=== PATIENT | female | born 1995 ===

== ENCOUNTER → 2016-07-16 | Outpatient (CLI) | payer OTHER ==
[~2016-07-16] MED LIST: NO HOME MEDS
[2016-07-21 15:46] LABS: CHLAMYDIA TRACH RNA*** NOT DETECTED (NOT DETECTED); GC (NEIS GONORRHOEAE)RNA** NOT DETECTED (NOT DETECTED)
== END | disposition home or self-care (01) ==
LOC: C.LABSPEC 15:41
PROVIDERS: ATTEND Obstetrics & Gynecology
DX: Z34.83 Encounter for supervision of other normal pregnancy, third trimester (principal)

== ENCOUNTER → 2016-07-17 | Outpatient (CLI) | payer OTHER | END | disposition home or self-care (01) | LOC: C.PAPS 17:18 | PROVIDERS: ATTEND Obstetrics & Gynecology | DX: Z34.83 Encounter for supervision of other normal pregnancy, third trimester (principal) ==

== ENCOUNTER → 2016-08-23 | Outpatient (CLI) | payer OTHER | END | disposition home or self-care (01) | LOC: C.LABSPEC 17:30 | PROVIDERS: ATTEND Obstetrics & Gynecology | DX: Z34.03 Encounter for supervision of normal first pregnancy, third trimester (principal) ==

== ENCOUNTER 2016-09-12 08:06 | Inpatient (IN) | payer OTHER ==
[2016-09-12] VITALS (9 sets, daily range): BP systolic 102–132; BP diastolic 60–79; PULSE 55–83; TEMP 36.6–37.1; O2SAT 96–100; Ht 147.3 cm; Wt 61.7 kg
[~2016-09-12] VITALS: Ht 147.3 cm; Wt 61.7 kg
--- NOTE | 2016-09-12 08:53 | DIAGNOSTIC IMAGING REPORT ---
Limited ultrasound LIMITED (US) CLINICAL HISTORY: UNKNOWN DUE DATE preamniocentesis TECHNIQUE: Ultrasound COMPARISON STUDY: None FINDINGS: Oligohydramnios. Amniotic fluid index 4 cm. Cephalic presentation. Pliable. heart rate 1 30 bpm IMPRESSION: Oligohydramnios. Cephalic presentation. Electronically signed by: Garrett Castrejon M.D. 09/12/2016 8:52 AM Dictated Date/Time: 09/12/2016 8:51 AM
--- NOTE | 2016-09-12 08:58 | HISTORY & PHYSICAL EXAMINATION ---
DATE OF ADMISSION: 09/12/2016 CHIEF COMPLAINT: Oligohydramnios, term , large cervical lesion. HISTORY OF PRESENT ILLNESS: The patient is a 21-year-old 1, para 0. She does not know her last menstrual period. She is a late arrival for care at about 34 weeks. She had a prior late trimester ultrasound which was undated and she is presently being evaluated for amniocentesis to check for lung maturity. However, the ultrasound showed oligohydramnios, so she is presently being scheduled for a primary low segment section due to large cervical lesion with a negative Pap smear. Cervical lesion is presumed to be a large wart. PAST MEDICAL HISTORY: She has no known drug allergies. PAST SURGICAL HISTORY: She has had no previous surgery. MEDICAL HISTORY: No history of rheumatic fever, heart disease, heart murmur, diabetes, tuberculosis. SOCIAL HISTORY: No smoking. No alcohol intake. FAMILY HISTORY: She is uncertain of any of her family history. REVIEW OF SYSTEMS: HEAD: No symptoms of frequent or severe headaches. EYES: No symptoms of blurred vision or double vision. EARS: No symptoms of frequent ear infections. PHYSICAL EXAMINATION: GENERAL: Well-developed, well-nourished [place] female, alert, oriented x3 and cooperative in no acute distress, appears stated age. EYES: Conjunctivae are pink. Sclerae white, no evidence of jaundice. EARS: Had normal light reflex bilaterally. NOSE: Had normal mucosa. Septum is midline. There were no polyps. THROAT: No erythema or evidence of infection. Teeth are in good state of repair. HEAD: Normocephalic, normal distribution of hair. NECK: Supple. Trachea midline. Thyroid is not enlarged. There is no adenopathy appreciated. Both carotids are of good intensity. CHEST: Clear to auscultation and percussion. No wheezes, rales or rhonchi appreciated. HEART: Regular rhythm. S1 and S2 are normal. BREAST EXAMINATION: Normal. ABDOMEN: Revealed term size fetus, vertex presentation. No abdominal tenderness. No CVA tenderness. PELVIC EXAMINATION: Revealed a large cervical wart covering the entire cervix about 5-6 cm in diameter. Cervix was open 1 cm, vertex presentation. MUSCULOSKELETAL EXAMINATION: Revealed no calf tenderness. IMPRESSIONS OF THIS CASE: Term , oligohydramnios, large cervical wart.
[2016-09-12] MEDS ORDERED: LACTATED RINGER'S 1000ML 1,000 ML IV SCH ×2 (09:32→12:00)
[2016-09-12] MEDS ORDERED: CITRIC ACID/SODIUM CITRATE 15 ML UDC PO ONE (09:45)
[2016-09-12] MEDS ORDERED: CEFOXITIN IV 2,000 MG in DEXTROSE 5% 50ML 50 ML IV SCH (10:00)
[2016-09-12] MEDS ORDERED: OXYTOCIN INJ 10 UNITS/ML VIAL INJ PRN (10:00)
[2016-09-12] MEDS ORDERED: MoRPHine SULFATE PF 1 MG/ML 10 ML AMP/VIAL ONE (10:03)
[2016-09-12] MEDS ORDERED: OXYTOCIN INJ 10 UNITS/ML VIAL ONE (10:03)
[2016-09-12] MEDS ORDERED: FENTANYL CITRATE INJ 50 MCG/1 ML 2 ML VIAL ONE (10:03)
[2016-09-12 10:04] LABS: BASO % 0.1 %; BASO ABS # 0.01 K/uL (0-0.2); COMPLETE YES; EOS % 1.1 %; HEMATOCRIT 33.9 % (37-47); IG% 0.4 %; LYMPH ABS # 1.95 K/uL (1.2-3.4); MEAN CELL VOLUME 84.3 fL (80-100); MEAN CORPUSCULAR HEMOGLOBIN 27.4 pg (25-34); MEAN CORPUSCULAR HGB CONC 32.4 g/dl (32-36); MEAN PLATELET VOLUME 11.8 fL (7.4-10.4); MONO % 7.6 %; NEUT % 63.8 %; PLATELET COUNT 181 K/uL (130-400); RED BLOOD COUNT 4.02 M/uL (4.2-5.4); WHITE BLOOD COUNT 7.21 K/uL (4.8-10.8)
[2016-09-12] MEDS ORDERED: PHENYLEPHRINE 100MCG/ML 5ML SYR ONE (10:55)
[2016-09-12] MEDS ORDERED: OXYTOCIN INJ 10 UNITS/ML VIAL IM ONE (10:57)
[2016-09-12] MEDS ORDERED: DIPHTHERIA/TETANUS/PERTUSSIS 0.5 ML SYR/VIAL IM. ONE (11:30)
[2016-09-12] MEDS ORDERED: MAGNESIUM HYDROXIDE SUSP 30 ML UDC PO PRN (11:30)
[2016-09-12] MEDS ORDERED: SENNA 8.6 MG TAB PO PRN (11:30)
[2016-09-12] MEDS ORDERED: LANOLIN OINT EXT PRN ×2 (11:30)
[2016-09-12] MEDS ORDERED: SUPERCREAM 0.870 % 15GM JAR EXT PRN (11:30)
[2016-09-12] MEDS ORDERED: BENZOCAINE 20% AER SPR 82.5 GM CAN EXT PRN (11:30)
[2016-09-12] MEDS ORDERED: HYDROCORTISONE ACETATE 25 MG SUPP PR PRN (11:30)
[2016-09-12] MEDS ORDERED: NALOXONE HCL INJ 0.08 MG in SYRINGE 1.8 ML IV PRN (11:41)
[2016-09-12] MEDS ORDERED: LACTATED RINGER'S 1000ML 500 ML IV PRN (11:41)
[2016-09-12] MEDS ORDERED: SODIUM CHLORIDE 0.9% 1000ML 1,000 ML IV PRN (11:41)
[2016-09-12] MEDS ORDERED: NALOXONE HCL INJ 1 MG in SODIUM CHLORIDE 0.9% 1000ML 1,000 ML IV PRN (11:41)
[2016-09-12] MEDS ORDERED: NALBUPHINE HCL INJ 10 MG/ML AMP IV PRN (11:45)
[2016-09-12] MEDS ORDERED: EpHEDrine SULFATE INJ 50 MG/ML AMP IV PRN ×2 (11:45)
[2016-09-12] MEDS ORDERED: DiphenhydrAMINE HCL 50 MG/ML VIAL IV PRN (11:45)
[2016-09-12] MEDS ORDERED: FENTANYL CITRATE INJ 50 MCG/1 ML 2 ML VIAL IV PRN (11:45)
[2016-09-12] MEDS ORDERED: NALOXONE HCL 0.4 MG/1 ML VIAL/CARP IV PRN (11:45)
[2016-09-12] MEDS ORDERED: NO NARCOTICS OR SEDATIVES SCH (11:45)
[2016-09-12] MEDS ORDERED: MoRPHine SULFATE PF 1 MG/ML 10 ML AMP/VIAL EPI PRN (11:45)
[2016-09-12] MEDS ORDERED: ONDANSETRON INJ 2 MG/ML 2 ML VIAL IV PRN ×2 (11:45)
[2016-09-12] MEDS ORDERED: MEPERIDINE HCL 25 MG/ML CARP IV PRN (11:45)
[2016-09-12] MEDS ORDERED: ATROPINE SULFATE 0.1 MG/ML 5ML SYR IV PRN (11:45)
--- NOTE | 2016-09-12 11:59 | OPERATIVE REPORT ---
DATE OF OPERATION: 09/12/2016 INDICATIONS FOR SURGERY: Oligohydramnios, large cervical wart. PREOPERATIVE DIAGNOSIS: Oligohydramnios, uncertain due date, large cervical lesion. POSTOPERATIVE DIAGNOSIS: Same. Pathology pending. PROCEDURE: Primary low segment section. SURGEON: Dr. Capone. ROADWAY ENGINEER: Dr. Garcia. ESTIMATED BLOOD LOSS: 600 mL. ANESTHESIA: Spinal. OPERATIVE FINDINGS AND PROCEDURE: The patient was brought to the OR table, correctly identified by armband and conversation. Spinal anesthesia was administered. A catheter was inserted. Suprapubic area was clipped. Compression stockings were applied. The patient was painted with an alcohol based sterilizing solution, draped in usual sterile fashion. Level of anesthesia was tested and found to be adequate. Pfannenstiel incision was made and carried down to the anterior fascia by sharp dissection. Hemostasis was secured by electrocauterization. Fascia was incised transversely from the underlying muscle by blunt and sharp dissection. Recti muscles were in the midline exposing the peritoneum which was carefully raised and entered. Incision was made above the vesicouterine fold. Bladder was undermined and pushed out of the operative field. Lower uterine segment was scored with a knife and then entered bluntly with the scissors. A small amount of clear amniotic fluid was noted at this time. Vectis retractor was applied to the infant's head and with fundal pressure, infant was delivered. After delivery of the head shoulders were delivered without difficulty. The was attended to by the district attorney, Dr. Sharpe, who was present and scrubbed at the time of delivery. Cord blood was taken. Placenta was removed manually. Uterus, tubes, and ovaries were brought out through the incision. Uterine cavity was cleansed with a clean sponge. Ten units of Pitocin was injected into the myometrium. Then the lower uterine segment defect was closed in layers. The myometrium was closed with continuous interlocking suture of heavy chromic. The endopelvic fascial layer was approximated over this with a continuous suture of heavy Vicryl and then about 2 [id number]-pr-mdsad sutures of heavy Vicryl used to approximate the edges to complete hemostasis. Following this, peritoneal edges were restored with a continuous 3-0 chromic and this restored good hemostasis. The pelvis was cleansed of all blood clots and debris. Tubes and ovaries were inspected and found to be normal. Uterus, tubes, and ovaries were reinserted into the abdominal cavity. Peritoneum was closed with a mattress suture of chromic catgut. Recti muscles were approximated with interrupted [id number] suture of chromic catgut. The fascia was closed with continuous interlocking suture of Vicryl on each side, tied in the midline. SubQ was approximated with a running plain. The skin edges were approximated with staple clips. I attest to the content of the Intraoperative Record and any orders documented therein. Any exceptio ns are noted below.
[2016-09-12] MEDS: SIMETHICONE 80 MG CHEW PO SCH ×3 (13:00→20:53)
--- NOTE | 2016-09-12 13:30 | Anesthesiology Progress Note ---
Anesthesia Post Op Note Date & Time Sep 12, 2016 at 13:30 Notes Mental Status: alert / awake / arousable, participated in evaluation Pt Amnestic to Procedure: Yes Nausea / Vomiting: adequately controlled Pain: adequately controlled Airway Patency, RR, SpO2: stable & adequate BP & HR: stable & adequate Hydration State: stable & adequate Neuraxial Anesthesia: was administered, sensory block is resolving Anesthetic Complications: no major complications apparent
[2016-09-12] MEDS: KETOROLAC TROMETHAMINE 30 MG/ML VIAL IV. PRN (14:17)
[2016-09-12] MEDS: OXYTOCIN INJ 20 UNITS in LACTATED RINGER'S 1000ML 1,000 ML IV SCH (14:18)
[2016-09-12] MEDS ORDERED: NO HOME MEDS (14:42)
[2016-09-12] MEDS: DOCUSATE SODIUM 100 MG CAP PO SCH (20:52)
[2016-09-13] VITALS (8 sets, daily range): BP systolic 104–107; BP diastolic 57–63; PULSE 64–73; TEMP 36.6–37.3; O2SAT 96–100
[2016-09-13] MEDS: KETOROLAC TROMETHAMINE 30 MG/ML VIAL IV. PRN (00:14)
[2016-09-13] MEDS ORDERED: DC INTRASPINAL MORPHINE SCH (04:30)
[2016-09-13] MEDS ORDERED: ZOLPIDEM TARTRATE 5 MG TAB PO PRN (04:31)
[2016-09-13] MEDS ORDERED: MEPERIDINE HCL 50 MG/ML CARP IV PRN (04:31)
[2016-09-13] MEDS ORDERED: MEPERIDINE HCL 75 MG/ML CARP IV PRN (04:31)
[2016-09-13] MEDS ORDERED: KETOROLAC TROMETHAMINE 30 MG/ML VIAL IV. PRN (04:31)
[2016-09-13] MEDS ORDERED: ONDANSETRON INJ 2 MG/ML 2 ML VIAL IV PRN (04:31)
[2016-09-13] MEDS ORDERED: DiphenhydrAMINE HCL 50 MG/ML VIAL IV PRN (04:31)
[2016-09-13] MEDS: OXYTOCIN INJ 20 UNITS in LACTATED RINGER'S 1000ML 1,000 ML IV SCH (05:57)
[2016-09-13 06:12] LABS: BASO % 0.1 %; BASO ABS # 0.01 K/uL (0-0.2); COMPLETE YES; EOS % 0.8 %; HEMATOCRIT 28.2 % (37-47); IG% 0.2 %; LYMPH % 15.5 %; LYMPH ABS # 1.72 K/uL (1.2-3.4); MEAN CELL VOLUME 81.5 fL (80-100); MEAN CORPUSCULAR HEMOGLOBIN 26.9 pg (25-34); MEAN PLATELET VOLUME 10.6 fL (7.4-10.4); MONO % 7.6 %; NEUT % 75.8 %; PLATELET COUNT 154 K/uL (130-400); RED BLOOD COUNT 3.46 M/uL (4.2-5.4); WHITE BLOOD COUNT 11.11 K/uL (4.8-10.8)
[2016-09-13] MEDS: SIMETHICONE 80 MG CHEW PO SCH ×4 (08:05→21:03)
[2016-09-13] MEDS: PRENATAL VITAMIN TAB PO SCH (08:05)
[2016-09-13] MEDS: FERROUS SULFATE 325 MG TAB PO SCH (08:06)
[2016-09-13] MEDS: DOCUSATE SODIUM 100 MG CAP PO SCH ×2 (08:07→21:02)
--- NOTE | 2016-09-13 08:35 | Progress Note ---
Subjective Sep 13, 2016. Subjective conversation w/ patient Ambulation: limited ambulation Voiding: no voiding problems Passing Gas: Yes Diet Tolerance: Regular Diet Lochia: Small Feeding Type: Breast Feeding Review of Systems Constitutional: + fever Objective Vital Signs Date Time Temp Pulse Resp B/P Pulse Ox O2 Delivery O2 Flow Rate FiO2 09/13/16 03:45 18 100 09/13/16 03:18 36.7 64 18 104/57 100 Room Air 09/13/16 02:45 18 98 09/13/16 01:45 16 99 09/13/16 00:45 18 100 09/12/16 23:45 100 Room Air 09/12/16 23:45 18 100 09/12/16 23:45 37.1 70 18 114/66 100 Room Air 09/12/16 22:25 18 96 09/12/16 21:25 20 98 09/12/16 20:25 16 100 09/12/16 19:25 16 99 09/12/16 18:25 18 96 09/12/16 17:25 18 100 09/12/16 16:25 36.9 83 18 132/79 99 Room Air 09/12/16 16:25 18 100 09/12/16 16:25 100 Room Air 09/12/16 15:25 20 100 09/12/16 15:25 36.6 55 20 102/60 100 Room Air 09/12/16 15:25 100 Room Air Physical Exam General Appearance: WELL-APPEARING Respiratory/Chest: lungs clear Abdomen: normal bowel sounds, non tender Fundus: Firm, Non-Tender Incision Description: Clean, Dry & Intact Extremities: no pedal edema, no calf tenderness Laboratory Results Last 24 Hours Test 09/12/16 09:53 09/12/16 13:31 09/13/16 05:56 White Blood Count 7.21 K/uL 11.11 K/uL Red Blood Count 4.02 M/uL 3.46 M/uL Hemoglobin 11.0 g/dL 9.3 g/dL Hematocrit 33.9 % 28.2 % Mean Corpuscular Volume 84.3 fL 81.5 fL Mean Corpuscular Hemoglobin 27.4 pg 26.9 pg Mean Corpuscular Hemoglobin Concent 32.4 g/dl 33.0 g/dl Platelet Count 181 K/uL 154 K/uL Mean Platelet Volume 11.8 fL 10.6 fL Neutrophils (%) (Auto) 63.8 % 75.8 % Lymphocytes (%) (Auto) 27.0 % 15.5 % Monocytes (%) (Auto) 7.6 % 7.6 % Eosinophils (%) (Auto) 1.1 % 0.8 % Basophils (%) (Auto) 0.1 % 0.1 % Neutrophils # (Auto) 4.59 K/uL 8.43 K/uL Lymphocytes # (Auto) 1.95 K/uL 1.72 K/uL Monocytes # (Auto) 0.55 K/uL 0.84 K/uL Eosinophils # (Auto) 0.08 K/uL 0.09 K/uL Basophils # (Auto) 0.01 K/uL 0.01 K/uL RDW Standard Deviation 44.5 fL 42.5 fL RDW Coefficient of Variation 14.4 % 14.4 % Immature Granulocyte % (Auto) 0.4 % 0.2 % Immature Granulocyte # (Auto) 0.03 K/uL 0.02 K/uL Random Glucose 77 mg/dl Rapid Plasma Reagin NONREACTIVE Rubella IgG Antibody IMMUNE Hepatitis B Surface Antigen NEG Hepatitis B Surface Antibody NEG Assessment and Plan Post-Op Day#: 1
[2016-09-13] MEDS ORDERED: NURSING VERBAL MED ORDER ONE (09:15)
[2016-09-13] MEDS: IBUPROFEN 600 MG TAB PO PRN ×3 (11:09→21:03)
[2016-09-13] MEDS: OXYCODONE/ACETAMINOPHEN 5-325 TAB PO PRN ×3 (11:09→21:03)
[2016-09-13] MEDS ORDERED: BISACODYL 5 MG TABEC ONE (20:52)
[2016-09-13] MEDS ORDERED: BISACODYL 5 MG TABEC PO ONE (22:00)
[2016-09-14] MEDS: IBUPROFEN 600 MG TAB PO PRN ×6 (02:38→23:48)
[2016-09-14] MEDS: OXYCODONE/ACETAMINOPHEN 5-325 TAB PO PRN ×6 (02:39→23:47)
[2016-09-14] MEDS ORDERED: BISACODYL 10 MG SUPP PR PRN (07:00)
[2016-09-14 08:00] VITALS: BP 86/52; PULSE 67; TEMP 37.2; O2SAT 98
--- NOTE | 2016-09-14 08:45 | Progress Note ---
Subjective Sep 14, 2016. Subjective conversation w/ patient Ambulation: ambulating normally Voiding: no voiding problems Passing Gas: Yes Diet Tolerance: Regular Diet Lochia: Small Feeding Type: Breast Feeding Review of Systems Constitutional: + fever Objective Vital Signs Date Time Temp Pulse Resp B/P Pulse Ox O2 Delivery O2 Flow Rate FiO2 09/14/16 08:00 37.2 67 16 86/52 09/13/16 23:40 37.0 69 16 105/63 96 Room Air 09/13/16 23:40 96 Room Air 09/13/16 15:30 36.6 67 20 107/60 Physical Exam General Appearance: WELL-APPEARING Respiratory/Chest: lungs clear Abdomen: normal bowel sounds, non tender Fundus: Firm, Non-Tender Incision Description: Clean, Dry & Intact Extremities: no pedal edema, no calf tenderness Assessment and Plan Post-Op Day#: 2
[2016-09-14] MEDS: SIMETHICONE 80 MG CHEW PO SCH ×4 (08:49→20:02)
[2016-09-14] MEDS: PRENATAL VITAMIN TAB PO SCH (08:50)
[2016-09-14] MEDS: FERROUS SULFATE 325 MG TAB PO SCH (08:50)
[2016-09-14] MEDS: DOCUSATE SODIUM 100 MG CAP PO SCH ×2 (08:50→20:02)
[2016-09-14 16:30] VITALS: BP 104/60; PULSE 61; TEMP 37; O2SAT 97
[2016-09-14 23:15] VITALS: BP 93/49; PULSE 64; TEMP 37
[2016-09-15] MEDS: IBUPROFEN 600 MG TAB PO PRN ×3 (04:15→13:01)
[2016-09-15] MEDS: OXYCODONE/ACETAMINOPHEN 5-325 TAB PO PRN ×3 (04:16→13:00)
[2016-09-15 07:30] VITALS: BP 100/58; PULSE 58; TEMP 36.8; O2SAT 96
[2016-09-15] MEDS: PRENATAL VITAMIN TAB PO SCH (08:29)
[2016-09-15] MEDS: DOCUSATE SODIUM 100 MG CAP PO SCH (08:29)
[2016-09-15] MEDS: FERROUS SULFATE 325 MG TAB PO SCH (08:29)
[2016-09-15] MEDS: SIMETHICONE 80 MG CHEW PO SCH ×2 (08:30→12:59)
--- NOTE | 2016-09-15 10:15 | Progress Note ---
Subjective Sep 15, 2016. Subjective conversation w/ patient Ambulation: ambulating normally Voiding: no voiding problems Passing Gas: Yes Diet Tolerance: Regular Diet Lochia: Small Feeding Type: Breast Feeding Review of Systems Constitutional: + fever Objective Vital Signs Date Time Temp Pulse Resp B/P Pulse Ox O2 Delivery O2 Flow Rate FiO2 09/14/16 23:15 37.0 64 20 93/49 Room Air 09/14/16 23:15 Room Air 09/14/16 16:30 97 Room Air 09/14/16 16:30 37.0 61 18 104/60 97 Room Air Physical Exam General Appearance: WELL-APPEARING Respiratory/Chest: lungs clear Abdomen: normal bowel sounds, non tender Fundus: Firm, Non-Tender Incision Description: Clean, Dry & Intact Extremities: no pedal edema, no calf tenderness Assessment and Plan Post-Op Day#: 3
--- NOTE | 2016-09-15 10:20 | Discharge Instructions ---
Discharge Instructions Date of Service Sep 15, 2016. Admission condylomata of the cervix oligohydramios Reason for Admission: Unknown Due Date - Section Discharge Discharge Diagnosis / Problem: condylomata of the cervix oligohydramios Discharge Goals Goal(s): Routine recovery after Activity Recommendations Activity Limitations: as noted below ACTIVITY RECOMMENDATIONS: * Gradual return to full activity over the next 2-3 weeks. * No lifting - nothing heavier than baby over the next 2-3 weeks. * Do not engage in vigorous exercise, sexual activity or sports for 6 weeks. * Do not drive or operate any motorized equipment for 14 days. * You may shower/bathe daily. DIET: Resume Previous Diet If Breast-feeding: * Increase caloric intake by 500 calories, eat 3 well balanced meals, 2 high protein snacks a day and drink 6-8 8oz. glasses of fluid per day. BREAST CARE: If you are not breast feeding: * Wear a supportive bra 24 hours a day for one to two weeks. * Avoid stimulating your breasts and nipples as much as possible during the first few weeks after delivery. * When taking a shower, have the warm water hit your back, not breasts. * When your breasts feel full, apply ice packs. Usually three to four times a day helps ease the discomfort. * Take a mild pain medication (Tylenol / Motrin) when you are uncomfortable. If breast feeding: * Use breast milk to lubricate nipples. Lansinoh cream may be used for sore nipples. You do not need to remove cream prior to breast feeding. If using a different brand of cream, check the label for directions regarding removal of cream prior to nursing. * Wear a supportive bra. * If having problems with breasts or breast feeding, call a integration consultant or your health care provider. VITAMINS: * One tablet daily. Continue taking while or until you have your check up in 6 weeks. SPECIAL CARE INSTRUCTIONS: * Vaginal rest (no tampons, douching, intercourse) until after doctor's visit. * control as discussed with doctor. * Verbalizes understanding of car seat law as reviewed with patient by nursing. * Car Seat hand-out given and reviewed with patient by nursing. * Shaken baby information reviewed with patient by nursing. Call you doctor if: * Heavy bleeding (saturating a pad an hour) or passing clots the size of your fist. Bleeding has a foul smelling odor. * A fever greater than 100.4 degrees F (38 degrees C) on two occasions four hours apart and/or chills. * Unusual pain in the pelvic or vaginal areas. Pain should improve each day . * Call the doctor for any increased redness, drainage or swelling around the incision and any pain unrelieved by prescribed pain medication. * Signs and symptoms of phlebitis(possible blood clots forming in the veins): leg pain, warm, red or swollen area on leg. * "Baby Blues" lasting longer than two weeks. If you have any questions or concerns, call your health care practitioner at [phone]. FOLLOW-UP VISIT: Follow-up visit for examination in 6 weeks. Incision check (staple removal) in 1 week. Please call office at [phone] if not already scheduled. . Current Hospital Diet Patient's current hospital diet: Regular OB Diet Discharge Diet Recommended Diet: Regular Diet Procedures Procedures Performed: Primary low transverse Caesarean Section Pending Studies Studies pending at discharge: no Medical Emergencies . Who to Call and When: Medical Emergencies: If at any time you feel your situation is an emergency, please call 911 immediately. . Non-Emergent Contact Non-Emergency issues call your: Deep Tissue Massage Therapist Call Non-Emergent contact if: temperature is above 100.5 . . "Provider Documentation" section prepared by Osiel Capone. VTE Core Measure Inpt VTE Proph given/why not?: Treatment not indicated
--- NOTE | 2016-09-15 10:35 | DISCHARGE SUMMARY ---
DATE OF DISCHARGE: 09/15/2016. The patient was brought to the ultrasound suite for evaluation of an amniocentesis to check for lung maturity. She was late arrival for care, first visit was about 33 weeks. She had no early ultrasounds and she had quite an uncertain last menstrual period. She did state though she thought she was due early in September. First visit in the office she had a huge condyloma of the cervix, basically replacing most of the cervix about 4-5 cm in diameter. Due to presence of this large condylomata vaginal delivery was not possible. After being brought to the ultrasound suite for evaluation of amniotic fluid she was found to have oligohydramnios. There was not a total lack of fluid but I think the LISET was under 4 and no pocket of over 1 cm. She was then sent to maternity where she underwent primary low segment section. At the time of surgery, she had scant fluid but there was fluid present and it was clear. Postoperatively, she did well. She remained afebrile, having received prophylactic antibiotics prior to the . Her bowel sounds returned within 24 hours. At the time of discharge, she was ambulating well, eating well. Her hemoglobin was stable at about 9.3. Postoperatively and preoperatively hemoglobin 11.0. Her pain was also well controlled on a combination of Percocet and Motrin and she was given prescriptions for Percocet and Motrin to take at home. She was also told to return to the office in a week for removal of the mary.
[2016-09-15 13:29] VITALS: BP_DIAS 58; PULSE 58; TEMP 36.8
== END 2016-09-15 13:40 | disposition home or self-care (01) | DRG 765 ==
LOC: C.ULTR 08:06 → EDBD 08:41 → C.LD 08:41 → C.OBG 15:28
PROVIDERS: ADMIT Obstetrics & Gynecology; ATTEND Obstetrics & Gynecology
PROC: 10D00Z1 Extraction of Products of Conception, Low, Open Approach (ICD-10-PCS; principal; 2016-09-12 10:01)
DX: O41.03X0 Oligohydramnios, third trimester, not applicable or unspecified (principal); O98.32 Other infections with a predominantly sexual mode of transmission complicating childbirth; O99.02 Anemia complicating childbirth; O75.89 Other specified complications of labor and delivery; D64.9 Anemia, unspecified; A63.0 Anogenital (venereal) warts; E66.3 Overweight; Z3A.38 38 weeks gestation of pregnancy; Z37.0 Single live birth; Z68.28 Body mass index [BMI] 28.0-28.9, adult

== ENCOUNTER → 2016-11-08 | Outpatient (CLI) | payer OTHER | END | disposition home or self-care (01) | LOC: C.PAPS 08:32 | PROVIDERS: ATTEND Obstetrics & Gynecology | DX: Z39.2 Encounter for routine postpartum follow-up (principal); R87.610 Atypical squamous cells of undetermined significance on cytologic smear of cervix (ASC-US) ==